=== PATIENT | male | born 1975 | race Caucasian/White ===

== ENCOUNTER 2016-05-18 07:10 | Inpatient (IN) | payer OTHER ==
[2016-05-18] MEDS ORDERED: METOCLOPRAMIDE HCL INJECTION 10 MG/2 ML VIAL IVPB ONE (07:29)
[2016-05-18 07:31] VITALS: BMI 20.7
[2016-05-18] MEDS ORDERED: LABETALOL HCL 5 MG/1 ML (100MG/20 ML VIAL) IVPUSH ONE ×2 (07:38→17:44)
[2016-05-18] MEDS ORDERED: METOCLOPRAMIDE HCL INJECTION 10 MG/2 ML VIAL ONE (07:43)
[2016-05-18 08:09] LABS: BASOPHIL 0.7 % (0-2.0); EOSINOPHIL 2.7 % (0-4.5); MCH 30.4 pg (25.7-33.7); MCHC 33.7 g/dl (32.0-35.9); MEAN CELL VOLUME 90.2 fl (80-96); MEAN PLT VOLUME 7.8 fl (7.5-11.1); NEUTROPHILS 71.3 % (42.8-82.8); PLATELET COUNT 75 K/MM3 (134-434); RDW 15.8 % (11.9-15.9); WHITE BLOOD COUNT 4.1 K/mm3 (4.0-10.0)
--- NOTE | 2016-05-18 08:12 | PDOC ---
History of Present Illness - General History Source: Patient Exam Limitations: No Limitations - History of Present Illness Initial Comments: 05/18/16 09:04 The patient is a 41 year old male with significant past medical history of diabetes and ESRD (on dialysis MWF) who presents to the emergency department with a headache for 1 day. The patient states his headache started yesterday afternoon and has been getting worse. He describes the headache as a constant, throbbing pressure localized to the front of his head. His pain does not radiate. He denies photophobia and other aggravating factors. He has associated bilateral blurry vision. He also reports associated nausea but denies any vomiting. He denies dizziness or lightheadedness. The patient is also complaining of right lower extremity weakness since yesterday. He has never experienced this pain before. The patietn was at dialysis today but did not receive his treatment because he came to the ED for evaluation of his headache. He denies any chest pain or SOB. He denies recent illness, fevers, and chills. The patient has been treated for a similar headache in 2013. <Sarah Massey - Last Filed: 05/18/16 10:32> <Boris Baxter - Last Filed: 05/18/16 13:29> - General Chief Complaint: Dialysis Shunt Problem Stated Complaint: WEAKNESS Time Seen by Provider: 05/18/16 07:29 Past History <Sarah Massey - Last Filed: 05/18/16 10:32> - Past Medical History Diabetes: Yes Dialysis: Yes (MW) HTN: Yes Suicide Attempt (Hx): No - Psycho/Social/Smoking Cessation Hx Anxiety: No Suicidal Ideation: No Smoking Status: No Smoking History: Never smoked Have you smoked in the past 12 months: No Number of Cigarettes Smoked Daily: 0 Information on smoking cessation initiated: No Hx Alcohol Use: No Drug/Substance Use Hx: No Substance Use Type: None Hx Substance Use Treatment: No <Boris Baxter - Last Filed: 05/18/16 13:29> - Past Medical History Allergies/Adverse Reactions: Allergies Allergy/AdvReac Type Severity Reaction Status Date / Time No Known Allergies Allergy Verified 05/18/16 07:30 Home Medications: Ambulatory Orders Insulin Glargine,Hum.rec.anlog [Lantus (10mL VIAL) -] 5 units SQ AM 01/25/13 Sevelamer HCl [Renagel] 2,400 mg PO TID 05/17/13 Folic Acid 1 mg PO DAILY 05/18/16 Insulin (LOG) Aspart [NovoLOG -] 10 units SQ HS 05/18/16 Labetalol HCl 100 mg PO BID 05/18/16 Nifedipine ER [Procardia Xl -] 30 mg PO DAILY 05/18/16 Sertraline HCl [Zoloft] 25 mg PO DAILY 05/18/16 Review of Systems - Review of Systems Able to Perform ROS?: Yes Comments:: 05/18/16 09:04 CONSTITUTIONAL: No fever, no chills, no fatigue EYES: +Blurry vision. No visual changes ENT: No ear pain, no sore throat CARDIOVASCULAR: No chest pain, no palpitations RESPIRATORY: No cough, no SOB GI: +Nausea. No abdominal pain, no vomiting, no constipation, no diarrhea GENITOURINARY: No dysuria, no frequency, no hematuria MUSCULOSKELETAL: No back pain, no joint pain, no myalgias SKIN: No rash NEURO: +Headache <Sarah Massey - Last Filed: 05/18/16 10:32> *Physical Exam - Vital Signs Last Vital Signs Temp Pulse Resp BP Pulse Ox 98 F 84 20 156/103 99 05/18/16 07:28 05/18/16 07:28 05/18/16 07:28 05/18/16 07:28 05/18/16 07:28 - Physical Exam Comments: 05/18/16 09:05 CONSTITUTIONAL: Well-appearing; well-nourished; in no apparent distress HEAD: Normocephalic; atraumatic EYES: PERRL; EOM intact. No photophobia, +left pupil is irregular. ENMT: External appears normal; normal oropharynx NECK: Supple; non-tender; no cervical lymphadenopathy. No evidence of meningismus. CARD: Normal S1, S2; no murmurs, rubs, or gallops RESP: Normal chest excursion with respiration; breath sounds clear and equal bilaterally; no wheezes, rhonchi, or rales ABD: Soft, non-distended; non-tender; no palpable organomegaly, no palpable hernias EXT: +LUQ with AV fistula noted with palpable thrill distally. Normal ROM in all four extremities; non-tender to palpation; distal pulses intact SKIN: Warm, dry, no rash NEURO: No focal neurological deficiencies. Cranial nerves 2-12 intact. Motor strength is 5/5 in both upper and lower extremities bilaterally. Gait is stable. <BrysonSarah - Last Filed: 05/18/16 10:32> - Vital Signs Last Vital Signs Temp Pulse Resp BP Pulse Ox 98 F 84 20 156/103 99 05/18/16 07:28 05/18/16 07:28 05/18/16 07:28 05/18/16 07:28 05/18/16 07:28 <Boris Baxter - Last Filed: 05/18/16 13:29> Heart Score/ECG Review - ECG Intrepretation Comment:: 05/18/16 08:51 Vent rate: 75 bpm ME interval: 142 ms QRS duration: 90 ms Normal sinus rhythm Possible left atrial enlargement Left ventricular hypertrophy <Sarah Massey - Last Filed: 05/18/16 10:32> ED Treatment Course - LABORATORY CBC & Chemistry Diagram: 05/18/16 07:40 05/18/16 07:40 - ADDITIONAL ORDERS Additional order review: Laboratory Results 05/18/16 07:40 INR 0.99 05/18/16 07:40 RBC 3.61 L MCV 90.2 MCHC 33.7 RDW 15.8 MPV 7.8 D Neutrophils % 71.3 Lymphocytes % 14.5 D Monocytes % 10.8 H Eosinophils % 2.7 Basophils % 0.7 - Medications Given in the ED: ED Medications Discontinued Medications Generic Name Dose Route Start Last Admin Trade Name Lamonteq PRN Reason Stop Dose Admin Diphenhydramine HCl 25 mg 05/18/16 07:30 05/18/16 07:50 Benadryl Injection - IVPUSH 05/18/16 07:31 25 mg ONCE ONE Administration Labetalol HCl 20 mg 05/18/16 07:38 05/18/16 07:50 Normodyne Injection - IVPUSH 05/18/16 07:39 20 mg ONCE ONE Administration Metoclopramide HCl 10 mg 05/18/16 07:29 05/18/16 07:50 Reglan Injection - IVPB 05/18/16 07:30 10 mg ONCE ONE Administration <Sarah Massey - Last Filed: 05/18/16 10:32> - LABORATORY CBC & Chemistry Diagram: 05/18/16 07:40 05/18/16 07:40 - RADIOLOGY Radiology Studies Ordered: Category Date Time Status HEAD CT WITHOUT CONTRAST [CT] Stat CT Scan 05/18/16 07:29 Taken - Medications Given in the ED: ED Medications Discontinued Medications Generic Name Dose Route Start Last Admin Trade Name Bjorn PRN Reason Stop Dose Admin Diphenhydramine HCl 25 mg 05/18/16 07:30 05/18/16 07:50 Benadryl Injection - IVPUSH 05/18/16 07:31 25 mg ONCE ONE Administration Labetalol HCl 20 mg 05/18/16 07:38 05/18/16 07:50 Normodyne Injection - IVPUSH 05/18/16 07:39 20 mg ONCE ONE Administration Metoclopramide HCl 10 mg 05/18/16 07:29 05/18/16 07:50 Reglan Injection - IVPB 05/18/16 07:30 10 mg ONCE ONE Administration <Boris Baxter - Last Filed: 05/18/16 13:29> Medical Decision Making - Medical Decision Making 05/18/16 10:[address] Pittman who is covering for Dr. Padgett. He will see the patient today. <Sarah Massey - Last Filed: 05/18/16 10:32> - Medical Decision Making 05/18/16 13:26 Patient is a well-appearing 41-year-old male with history of diabetes (end- stage renal disease on hemodialysis Monday/Monday/Monday), presents with atraumatic frontal headache for 24 hours with nausea and blurry vision and inability to obtain regular scheduled hemodialysis session due to the lack of properly functioning AV fistula. In the ER, patient is awake and alert, without evidence of meningismus; patient had been treated for similar symptoms in 2013. Neurological examination reveals no obvious deficits. Visual nevarez are intact bilaterally. I do not suspect a subarachnoid hemorrhage. CT of head revealed no evidence of intracerebral hemorrhage. Doppler ultrasound of the left upper extremity AV fistula revealed a thrombus with a 50% high-grade stenosis which will require declotting. Patient will be evaluated by Dr. Kd Smart vascular surgery. Will keep nothing by mouth. We'll hemodialyzed after declotting procedure. <Boris Baxter - Last Filed: 05/18/16 13:29> *DC/Admit/Observation/Transfer - Attestations Scribe Attestion: 05/18/16 08:48 Documentation prepared by Sarah Massey, acting as diploma medical assistant for Boris Baxter MD. <Sarah Massey - Last Filed: 05/18/16 10:32> - Discharge Dispostion Admit: Yes - Attestations Physician Attestion: 05/18/16 13:26 The documentation was prepared by the scribe under my direct supervision. I have reviewed the documentation which correctly represents the findings, medical decision-making and critical action taken by me. <Boris Baxter - Last Filed: 05/18/16 13:29> Diagnosis at time of Disposition: Headache AV fistula thrombosis Qualifiers: Encounter type: initial encounter Qualified Code(s): T82.868A - Thrombosis of vascular prosthetic devices, implants and grafts, initial encounter
[2016-05-18 08:22] LABS: INR 0.99 (0.82-1.09); PROTHROMBIN TIME (PATIENT) 10.9 SEC (9.98-11.88)
[2016-05-18 08:32] LABS: ALBUMIN 4.1 g/dl (3.4-5.0); BILIRUBIN,TOTAL 0.5 mg/dL (0.2-1.0); CALCIUM 8.8 mg/dL (8.5-10.1)
[2016-05-18] MEDS ORDERED: traMADol HCL 50 MG TABLET PO ONE (08:48)
[2016-05-18] MEDS ORDERED: traMADol HCL 50 MG TABLET ONE (08:49)
[2016-05-18 08:59] LABS: CREATININE 17.2 mg/dL (0.7-1.3)
--- NOTE | 2016-05-18 11:39 | CONSULT ---
Consult - text type - Consultation Consultation Note: Renal Consult for ESRD/Clotted AVF This is a 41 year old Gentleman with PMhx of ESRD with Hx of Renal transplant now on HD, Hypertension, IDDM who was sent to the ED from his outpatient HD unit for clotted AVF. Pt with complaints of headache since yesterday that is diffuse. No blurry vision, chest pain, sob. Last dialysis was Monday. Pt was seen by [facility] for his AVF last week and is s/p angioplasty however according to the dialysis unit has been having trouble with his access since then. They attempted to canulate him today but they were not able to pull blood from the AVF to start dialysis. Pt denies any fever, chills, N/V/D. PMhx: as above Allergies: NKDA Family Hx: NC Social Hx: No T/A/D ROS: as per HPI, all other pertinent ros negative Home Meds: Home Medications Medication Instructions Recorded Insulin Glargine,Hum.rec.anlog 5 units SQ AM 01/25/13 [Lantus (10mL VIAL) -] Sevelamer HCl [Renagel] 2,400 mg PO TID 05/17/13 Folic Acid 1 mg PO DAILY 05/18/16 Insulin (LOG) Aspart [NovoLOG -] 10 units SQ HS 05/18/16 Labetalol HCl 100 mg PO BID 05/18/16 Nifedipine ER [Procardia Xl -] 30 mg PO DAILY 05/18/16 Sertraline HCl [Zoloft] 25 mg PO DAILY 05/18/16 Vital Signs Temperature 98 F 05/18/16 07:28 Pulse Rate 84 05/18/16 07:28 Respiratory Rate 20 05/18/16 07:28 Blood Pressure 156/103 05/18/16 07:28 O2 Sat by Pulse Oximetry (%) 99 05/18/16 07:28 Intake & Output 05/15/16 05/16/16 05/17/16 05/18/16 23:59 23:59 23:59 23:59 Weight 145 lb Gen: NAD, awake and alert HEENT: NC/AT, MMM, No JVD CVS: RRR, No M/R Lungs: CTA, no rales or wheeze Abd: soft NT/ND Ext: No edema, clubbing or cyanosis Access: Left ARM AVF pulseatile, + buit in the distal portion of AVF Neuro: + RODRIGUES, no focal defects CBC, BMP 05/18/16 07:40 05/18/16 07:40 A/P 41 year old Gentleman with PMhx of ESRD with Hx of Renal transplant now on HD, Hypertension, IDDM who was sent to the ED from his outpatient HD unit for clotted AVF. Pt with complaints of headache since yesterday that is diffuse #Malfunctioning AVF s/p Doppler of AVF -> read pending Vascular Sx eval - Dr. Smart is aware may need declott this admission #ESRD on HD Due for dialysis today Will access need for inpatient dialysis depending on if there is a significant stenosis and if a intervention can be done early enough #Mild Hyperkalemia Montor for now if pt can get dialysis today that will be best intervention if dialysis not going to happen can use kayexalate #Headache S/p Tramadol in the ED #Hypertension s/p IV labetalol in the ED resume his home Procardia XL and PO labealol Thank you will follow Fransisco Pittman DO
[2016-05-18] MEDS ORDERED: ACETAMINOPHEN 500 MG TABLET (FP) PO ONE (12:30)
[2016-05-18] MEDS ORDERED: ACETAMINOPHEN 325 MG TABLET (FP) ONE (12:44)
[2016-05-18] MEDS: SODIUM CHLORIDE 1,000 ML IV SCH (13:48)
--- NOTE | 2016-05-18 16:05 | EKG ---
Test Reason : Blood Pressure : / mmHG Vent. Rate : 075 BPM Atrial Rate : 075 BPM P-R Int : 142 ms QRS Dur : 090 ms QT Int : 410 ms P-R-T Axes : 059 074 025 degrees QTc Int : 457 ms NORMAL SINUS RHYTHM POSSIBLE LEFT ATRIAL ENLARGEMENT LEFT VENTRICULAR HYPERTROPHY ABNORMAL ECG WHEN COMPARED WITH ECG OF 20-MAY-2013 12:09, NONSPECIFIC T WAVE ABNORMALITY NO LONGER EVIDENT IN LATERAL LEADS Confirmed by EVETTE ZAPIEN, CRISSY ([id number]) on 05/18/2016 4:04:46 PM Referred By: Confirmed By:CRISSY ALAS MD
--- NOTE | 2016-05-18 17:46 | PN ---
Progress Note (short form) - Note Progress Note: Vascular Surgery Pt seen and examined. Left avf pulsatile. Will need venogram, possible suction thrombectomy in am. NPO past midnite Kd alfred DO
[2016-05-18] MEDS ORDERED: ONDANSETRON 4 MG/2 ML VIAL IVPB PRN (19:02)
[2016-05-18] MEDS ORDERED: ONDANSETRON 4 MG/2 ML VIAL IVPB ONE (19:15)
[2016-05-18] MEDS ORDERED: DEXTROSE 4 GM PO SCH (21:30)
[2016-05-18] MEDS ORDERED: INSULIN SLIDING SCALE (NOVOLOG) 1 VIAL SQ SCH (22:00)
[2016-05-18] MEDS: hydrALAZINE HCL 25 MG TABLET (FP) PO SCH (22:43)
[2016-05-18] MEDS: LABETALOL HCL 100 MG TABLET (FP) PO SCH (22:43)
[2016-05-18] MEDS: INSULIN DETEMIR 100 UNITS/ML MDV SQ SCH (22:45)
[2016-05-19] MEDS: INSULIN (NOVOLOG) ASPART 100 UNITS/ML 10ML VIAL SQ SCH ×2 (06:19→11:26)
[2016-05-19 08:18] LABS: BASOPHIL 1.3 % (0-2.0); EOSINOPHIL 3.2 % (0-4.5); MCH 30.2 pg (25.7-33.7); MCHC 33.6 g/dl (32.0-35.9); MEAN CELL VOLUME 89.8 fl (80-96); MEAN PLT VOLUME 8.2 fl (7.5-11.1); PLATELET COUNT 75 K/MM3 (134-434); WHITE BLOOD COUNT 3.2 K/mm3 (4.0-10.0)
[2016-05-19] MEDS: SEVELAMER CARBONATE 800 MG TAB (FP) PO SCH ×2 (08:28→11:59)
[2016-05-19 08:47] LABS: ALBUMIN 3.8 g/dl (3.4-5.0); CALCIUM 8.8 mg/dL (8.5-10.1); TOT PROT 6.2 g/dl (6.4-8.2)
[2016-05-19 08:53] LABS: BILIRUBIN,TOTAL 0.6 mg/dL (0.2-1.0)
[2016-05-19 08:55] LABS: CREATININE 20.4 mg/dL (0.7-1.3)
[2016-05-19] MEDS ORDERED: PT OWN MED DRAWER 7, Y5N ONE (09:16)
[2016-05-19] MEDS: hydrALAZINE HCL 25 MG TABLET (FP) PO SCH ×2 (09:19→21:04)
[2016-05-19] MEDS: FOLIC ACID 1 MG TABLET (FP) PO SCH (09:19)
[2016-05-19] MEDS: LABETALOL HCL 100 MG TABLET (FP) PO SCH ×2 (09:19→21:05)
[2016-05-19] MEDS: SERTRALINE HCL 25 MG TABLET (FP) PO SCH (09:19)
[2016-05-19] MEDS ORDERED: NIFEdipine E.R. 30 MG TABLET (FP) PO SCH (10:00)
[2016-05-19] MEDS: SODIUM CHLORIDE 1,000 ML IV SCH (10:50)
--- NOTE | 2016-05-19 12:03 | PN ---
Progress Note (short form) - Note Progress Note: Renal Follow up for ESRD on HD/Clotted AVF Pt seen and examined at the bedside no acute complaints RODRIGUES is now resolved no chest pain, fever, chills for OR today for thrombectomy planed for dialysis after Vital Signs Temperature 98 F 05/19/16 08:00 Pulse Rate 75 05/19/16 08:00 Respiratory Rate 18 05/19/16 08:00 Blood Pressure 161/105 05/19/16 08:00 O2 Sat by Pulse Oximetry (%) 99 05/18/16 22:00 Intake & Output 05/16/16 05/17/16 05/18/16 05/19/16 23:59 23:59 23:59 23:59 Intake Total 0 600 Output Total 100 Balance -100 600 Weight 145 lb 0.004 oz Gen: NAD CVS: RRR, No M/R Lungs: CTA, no rales or wheeze Abd: soft NT/ND Ext: No edema, clubbing or cyanosis Access: Left ARM AVF pulseatile, + buit in the distal portion of AVF CBC, BMP 05/19/16 08:12 05/19/16 08:12 Laboratory Tests 05/19/16 08:12 Calcium 8.8 Albumin 3.8 Current Medications Folic Acid (Folic Acid -) 1 mg PO DAILY [facility] Last Admin: 05/19/16 09:19 Dose: Not Given Hydralazine HCl (Apresoline -) 25 mg PO BID [facility] Last Admin: 05/19/16 09:19 Dose: 25 mg Sodium Chloride (Normal Saline -) 1,000 mls @ 50 mls/hr IV ASDIR [facility] Stop: 05/19/16 13:29 Last Admin: 05/19/16 10:50 Dose: 50 mls/hr Insulin Aspart (Novolog Vial) 3 units SQ TIDAC [facility] Last Admin: 05/19/16 11:26 Dose: Not Given Insulin Detemir (Levemir Vial) 10 units SQ HS [facility] Last Admin: 05/18/16 22:45 Dose: 10 units Labetalol HCl (Normodyne -) 100 mg PO BID [facility] Last Admin: 05/19/16 09:19 Dose: 100 mg Nifedipine (Procardia Xl -) 30 mg PO DAILY [facility] Last Admin: 05/19/16 09:19 Dose: 30 mg Ondansetron HCl (Zofran Injection) 4 mg IVPB Q6H PRN PRN Reason: NAUSEA AND/OR VOMITING Sertraline HCl (Zoloft -) 25 mg PO DAILY [facility] Last Admin: 05/19/16 09:19 Dose: Not Given Sevelamer Carbonate (Renvela -) 2,400 mg PO TIDCM [facility] Last Admin: 05/19/16 11:59 Dose: Not Given A/P 41 year old Gentleman with PMhx of ESRD with Hx of Renal transplant now on HD, Hypertension, IDDM who was sent to the ED from his outpatient HD unit for clotted AVF. Pt with complaints of headache since yesterday that is diffuse #Malfunctioning AVF s/p Doppler of AVF -> showed significant stenosis for OR today for fistulagram and thrombectomy #ESRD on HD For dialysis following HD no heparin given low plts #Mild Hyperkalemia To get dialysis today #Headache no resolved #Hypertension Continue Procardia XL and PO labealol UF with HD Fransisco Pittman DO
[2016-05-19] MEDS ORDERED: DEXTROSE 50%-WATER 50 ML VIAL IVPB ONE (12:30)
[2016-05-19] MEDS ORDERED: DEXTROSE 50%-WATER 50 ML DISP.SYRIN ONE (12:33)
[2016-05-19] MEDS ORDERED: LIDOCAINE HCL 1%, 10 MG/ML (20ML VIAL) ONE (12:57)
[2016-05-19] MEDS ORDERED: HEPARIN NA (PORCINE) 5,000 UNITS/ML 1ML VIAL ONE (12:57)
[2016-05-19] MEDS ORDERED: LIDOCAINE 1% P/F 10 MG/ML VIAL INF ONE (13:57)
--- NOTE | 2016-05-19 14:17 | OP ---
Operative Note - Note: Operative Date: 05/19/16 Pre-Operative Diagnosis: ESRD Operation: Insertion of shiley Post-Operative Diagnosis: Same as Pre-op Surgeon: Kd Smart Anesthesia: Fractional Estimated Blood Loss (mls): 2 Operative Report Dictated: Yes
--- NOTE | 2016-05-19 14:21 | PN ---
Progress Note (short form) - Note Progress Note: VAscular Surgery Shiley cath placed left femoral vein. Guide wire removed. All ports flushed. May use cath for HD For delcot of left avf milvia morning. BP in OR today 180/105. Could not give anesthesia with the blood pressure being high. Kd Smart DO
--- NOTE | 2016-05-19 14:47 | EKG ---
Test Reason : Blood Pressure : / mmHG Vent. Rate : 086 BPM Atrial Rate : 086 BPM P-R Int : 150 ms QRS Dur : 088 ms QT Int : 380 ms P-R-T Axes : 064 077 036 degrees QTc Int : 454 ms NORMAL SINUS RHYTHM POSSIBLE LEFT ATRIAL ENLARGEMENT LEFT VENTRICULAR HYPERTROPHY ABNORMAL ECG WHEN COMPARED WITH ECG OF 18-MAY-2016 08:50, NO SIGNIFICANT CHANGE WAS FOUND Confirmed by STAR JORDAN MD ([id number]) on 05/19/2016 2:47:13 PM Referred By: Confirmed By:STAR JORDAN MD
--- NOTE | 2016-05-19 16:19 | HP ---
Admitting History and Physical - Past Medical History Cardiovascular: Yes: HTN Renal/: Yes: Renal Failure, Hemodialysis - Smoking History Smoking history: Never smoked Have you smoked in the past 12 months: No Aproximately how many cigarettes per day: 0 - Alcohol/Substance Use Hx Alcohol Use: No Home Medications - Allergies Allergies/Adverse Reactions: Allergies Allergy/AdvReac Type Severity Reaction Status Date / Time No Known Allergies Allergy Verified 05/18/16 07:30 - Home Medications Home Medications: Ambulatory Orders Insulin Glargine,Hum.rec.anlog [Lantus (10mL VIAL) -] 3 units SQ TIDCM 01/25/13 Sevelamer HCl [Renagel] 2,400 mg PO TID 05/17/13 Dextrose Tablet [Glucose Tablet -] 4 gm PO ASDIR 05/18/16 Folic Acid 1 mg PO DAILY 05/18/16 Insulin (LOG) Aspart [NovoLOG -] 10 units SQ HS 05/18/16 Labetalol HCl 100 mg PO BID 05/18/16 Nifedipine ER [Procardia Xl -] 30 mg PO DAILY 05/18/16 Sertraline HCl [Zoloft] 25 mg PO DAILY 05/18/16 Physical Examination Vital Signs: Vital Signs Temperature 97.9 F 05/19/16 14:00 Pulse Rate 87 05/19/16 15:50 Respiratory Rate 18 05/19/16 15:50 Blood Pressure 172/108 05/19/16 15:50 O2 Sat by Pulse Oximetry (%) 98 05/19/16 09:00 Labs: CBC, BMP 05/19/16 08:12 05/19/16 08:12
[2016-05-19 19:30] LABS: CALCIUM 8.5 mg/dL (8.5-10.1)
[2016-05-19] MEDS: ACETAMINOPHEN 325 MG TABLET (FP) PO PRN (21:04)
[2016-05-19] MEDS: INSULIN DETEMIR 100 UNITS/ML MDV SQ SCH (21:05)
[2016-05-20] MEDS: ACETAMINOPHEN 325 MG TABLET (FP) PO PRN (02:51)
[2016-05-20] MEDS: INSULIN (NOVOLOG) ASPART 100 UNITS/ML 10ML VIAL SQ SCH ×2 (06:06→11:39)
[2016-05-20 07:31] LABS: BASOPHIL 0.9 % (0-2.0); EOSINOPHIL 2.5 % (0-4.5); MCH 30.2 pg (25.7-33.7); MCHC 33.8 g/dl (32.0-35.9); MEAN CELL VOLUME 89.3 fl (80-96); NEUTROPHILS 66.4 % (42.8-82.8); PLATELET COUNT 78 K/MM3 (134-434); RDW 15.3 % (11.9-15.9); WHITE BLOOD COUNT 3.1 K/mm3 (4.0-10.0)
[2016-05-20 07:47] LABS: ALBUMIN 3.8 g/dl (3.4-5.0); CALCIUM 8.1 mg/dL (8.5-10.1)
[2016-05-20 07:55] LABS: BILIRUBIN,TOTAL 0.6 mg/dL (0.2-1.0); TOT PROT 6.8 g/dl (6.4-8.2)
[2016-05-20] MEDS: SEVELAMER CARBONATE 800 MG TAB (FP) PO SCH ×2 (08:31→12:00)
[2016-05-20 08:46] LABS: CREATININE 11.4 mg/dL (0.7-1.3)
[2016-05-20] MEDS ORDERED: NIFEdipine E.R 60 MG TABLET (UD) PO SCH (09:41)
[2016-05-20] MEDS ORDERED: LABETALOL HCL 200 MG TABLET (FP) PO SCH (09:41)
[2016-05-20] MEDS ORDERED: PT OWN MED DRAWER 7, Y5N ONE (09:46)
[2016-05-20] MEDS: hydrALAZINE HCL 25 MG TABLET (FP) PO SCH ×2 (09:48→21:50)
[2016-05-20] MEDS: FOLIC ACID 1 MG TABLET (FP) PO SCH (09:48)
[2016-05-20] MEDS: SERTRALINE HCL 25 MG TABLET (FP) PO SCH (09:48)
--- NOTE | 2016-05-20 12:56 | CON.CARD ---
Consult Consult Specialty:: Cardiology Referred by:: Dr. Yap Reason for Consultation:: uncontrolled HTN - History of Present Illness Chief Complaint: headache, clotted AV graft History of Present Illness: 41 year old man h/o DM, ESRD on HD admitted with headache and clotted AV graft, noted to have severe uncontrolled HTN. Seen and examined today in nad. states he is feeling better. still mild headache. denies chest pain, sob, palpitations , no pnd, orthopnea, or le edema. - History Source History Provided By: Patient, Medical Record Limitations to Obtaining History: Language Barrier - Past Medical History Cardio/Vascular: Yes: HTN Renal/: Yes: Renal Failure, Hemodialysis - Alcohol/Substance Use Hx Alcohol Use: No - Smoking History Smoking history: Never smoked Have you smoked in the past 12 months: No Aproximately how many cigarettes per day: 0 Home Medications - Allergies Allergies/Adverse Reactions: Allergies Allergy/AdvReac Type Severity Reaction Status Date / Time No Known Allergies Allergy Verified 05/18/16 07:30 - Home Medications Home Medications: Ambulatory Orders Insulin Glargine,Hum.rec.anlog [Lantus (10mL VIAL) -] 3 units SQ TIDCM 01/25/13 Sevelamer HCl [Renagel] 2,400 mg PO TID 05/17/13 Dextrose Tablet [Glucose Tablet -] 4 gm PO ASDIR 05/18/16 Folic Acid 1 mg PO DAILY 05/18/16 Insulin (LOG) Aspart [NovoLOG -] 10 units SQ HS 05/18/16 Labetalol HCl 100 mg PO BID 05/18/16 Nifedipine ER [Procardia Xl -] 30 mg PO DAILY 05/18/16 Sertraline HCl [Zoloft] 25 mg PO DAILY 05/18/16 Family Disease History - Family Disease History Family History: Denies Review of Systems - Review of Systems Constitutional: denies: No Symptoms, Chills, Diaphoresis, Fever, Lethargy, Loss of Appetite, Malaise, Night Sweats, Unintentional Wgt. Loss, Weakness, Other Eyes: denies: No Symptoms, Blind Spots, Blurred Vision, Double Vision, Eye Pain , Floaters, Photophobia, Recent Change in Vision, Other HENT: denies: No Symptoms, Difficult Swallowing, Ear Discharge, Ear Pain, Epistaxis, Gingival Bleeding, Hearing Loss, Mouth Swelling, Nasal Congestion, Ocular Prosthesis, Throat Pain, Toothache, Ringing in Ears, Other Neck: denies: No Symptoms, Decreased ROM, Lumps, Pain on Movement, Stiffness, Swollen Glands, Tenderness, Other Cardiovascular: denies: No Symptoms, Chest Pain, Edema, Palpitations, Shortness of Breath, Other Respiratory: denies: No Symptoms, Cough, Exercise Intolerance, Hemoptysis, Orthopnea, PND, Snoring, SOB, SOB on Exertion, Wheezing, Other Gastrointestinal: denies: No Symptoms, Abdominal Pain, Bloating, Constipation, Diarrhea, Dysphagia, Indigestion, Melena, Nausea, Rectal Bleeding, Vomiting, Vomiting Blood, Other Genitourinary: denies: No Symptoms, Burning, Discharge, Dysuria, Flank Pain, Frequency, Hematuria, Incontinence, Lesions, Menses, Pain, Testicular Mass, Testicular Pain, Testicular Swelling, Urgency, Vaginal Bleeding, Other Breasts: denies: No Symptoms Reported, See HPI, Breast Implants, Discharge from Nipple, Lumps, Pain, Skin Changes, Other Musculoskeletal: denies: No Symptoms, Back Pain, Crepitus, Decreased ROM, Extremity Pain, Joint Pain, Joint Swelling, Muscle Pain, Muscle Cramps, Muscle Weakness, Other Integumentary: denies: No Symptoms, Blister, Bruising, Change in Color, Eczema, Erythema, Incision, Lesions, Lump, Pallor, Pruritis, Rash, Wound, Other Neurological: reports: Headache. denies: No Symptoms, Change in LOC, Change in Speech, Confusion, Dizziness, Incoordination, Numbness, Parasthesia, Pre- Existing Deficit, Seizure, Syncope, Tremors, Unsteady Gait, Weakness, Other Endocrine: denies: No Symptoms, Excessive Sweating, Flushing, Increased Hunger, Increased Thirst, Intolerance to Cold, Intolerance to Heat, Unexplained Weight Gain, Unexplained Weight Loss, Other Hematology/Lymphatic: denies: No Symptoms, Easily Bruised, Excessive Bleeding, Swollen Glands, Other Psychiatric: denies: No Symptoms, Altered Sleep Pattern, Anxiety, Depression, Hallucinations, Panic, Paranoia, Suicidal, Other - Risk Factors Known Risk Factors: Yes: Diabetes Mellitus Vital Signs: Vital Signs Temperature 97.8 F 05/20/16 07:52 Pulse Rate 90 05/20/16 11:40 Respiratory Rate 18 05/20/16 11:40 Blood Pressure 152/96 05/20/16 11:40 O2 Sat by Pulse Oximetry (%) 98 05/19/16 21:00 Constitutional: Yes: Well Nourished, No Distress, Calm Eyes: Yes: WNL, Conjunctiva Clear, EOM Intact, PERRL HENT: Yes: WNL, Atraumatic, Normocephalic Neck: Yes: WNL, Supple, Trachea Midline Respiratory: Yes: WNL, Regular, CTA Bilaterally. No: Rales, Rhonchi, Wheezes Gastrointestinal: Yes: WNL, Normal Bowel Sounds, Soft. No: Distention, Tenderness Renal/: Yes: WNL Cardiovascular: Yes: WNL, Regular Rate and Rhythm. No: Bradycardia, Tachycardia , Pulse Irregular, Gallop, Rub, Varicosities JVD: No Carotid Bruit: No PMI: Non-Displaced Heart Sounds: Yes: S1, S2. No: Split S2, S3, S4, Clicks, Gallop, Rub, Bruit Murmur: No: Systolic Murmur, Diastolic Murmur Musculoskeletal: Yes: WNL Extremities: Yes: WNL Edema: No Peripheral Pulses WNL: Yes Peripheral Pulses: 2+ Left Doralis Pedis, 2+ Right Dorsalis Pedis Integumentary: Yes: WNL Neurological: Yes: WNL, Alert, Oriented, Cran Nerves II-XII Intact ...Motor Strength: WNL Psychiatric: Yes: WNL, Alert, Oriented - Other Data Labs, Other Data: CBC, BMP 05/20/16 06:30 05/20/16 06:30 INR, PTT INR 0.99 (0.82-1.09) 05/18/16 07:40 ekg reviewed Imaging - Results Chest X-ray: Report Reviewed, Image Reviewed EKG: Report Reviewed, Image Reviewed Other: Report Reviewed, Image Reviewed Assessment/Plan 41 year old man h/o DM, ESRD on HD admitted with headache and clotted AV graft, noted to have severe uncontrolled HTN. Severe uncontrolled HTN -uptitrate procardia to 60mg daily and further if needed for HTN control -uptitrate Labetalol to 200mg bid and further if needed -cont hydralazine 25mg po bid for now
--- NOTE | 2016-05-20 13:05 | PN ---
Progress Note (short form) - Note Progress Note: Renal Follow up for ESRD on HD/Clotted AVF Pt seen and examined at the bedside s/p Hd yesterday via Shiley catheter no acute complaints for AVF declott today Vital Signs Temperature 97.8 F 05/20/16 07:52 Pulse Rate 90 05/20/16 11:40 Respiratory Rate 18 05/20/16 11:40 Blood Pressure 152/96 05/20/16 11:40 O2 Sat by Pulse Oximetry (%) 97 05/20/16 09:00 Intake & Output 05/17/16 05/18/16 05/19/16 05/20/16 23:59 23:59 23:59 23:59 Intake Total 0 1050 Output Total 100 Balance -100 1050 Weight 145 lb 0.004 oz Gen: NAD CVS: RRR, No M/R Lungs: CTA, no rales or wheeze Abd: soft NT/ND Ext: No edema, clubbing or cyanosis Access: Left ARM AVF pulseatile, + buit in the distal portion of AVF CBC, BMP 05/20/16 06:30 05/20/16 06:30 Current Medications Acetaminophen (Tylenol -) 650 mg PO Q6H PRN PRN Reason: FEVER OR PAIN Last Admin: 05/20/16 02:51 Dose: 650 mg Folic Acid (Folic Acid -) 1 mg PO DAILY [facility] Last Admin: 05/20/16 09:48 Dose: Not Given Hydralazine HCl (Apresoline -) 25 mg PO BID [facility] Last Admin: 05/20/16 09:48 Dose: 25 mg Insulin Aspart (Novolog Vial) 3 units SQ TIDAC [facility] Last Admin: 05/20/16 11:39 Dose: Not Given Insulin Detemir (Levemir Vial) 10 units SQ HS [facility] Last Admin: 05/19/16 21:05 Dose: Not Given Labetalol HCl (Normodyne -) 200 mg PO BID [facility] Last Admin: 05/20/16 09:48 Dose: 200 mg Nifedipine (Procardia Xl -) 60 mg PO DAILY [facility] Last Admin: 05/20/16 10:56 Dose: 60 mg Ondansetron HCl (Zofran Injection) 4 mg IVPB Q6H PRN PRN Reason: NAUSEA AND/OR VOMITING Sertraline HCl (Zoloft -) 25 mg PO DAILY [facility] Last Admin: 05/20/16 09:48 Dose: Not Given Sevelamer Carbonate (Renvela -) 2,400 mg PO TIDCM [facility] Last Admin: 05/20/16 08:31 Dose: Not Given A/P 41 year old Gentleman with PMhx of ESRD with Hx of Renal transplant now on HD, Hypertension, IDDM who was sent to the ED from his outpatient HD unit for clotted AVF. Pt with complaints of headache since yesterday that is diffuse #Malfunctioning AVF s/p Doppler of AVF -> showed significant stenosis for AVF declott today #ESRD on HD s/p dialysis yesterday pt is off regular HD schedule Arrangement have been made for him to have dialysis tomorrow as his outpatient HD unit tomorrow at 3pm. Transportation to be arranged by HD unit. Pt is aware of this. He can be discharged home after OR. #Hypertension Continue Procardia XL and PO labealol UF with HD Fransisco Pittman DO
--- NOTE | 2016-05-20 14:12 | OP ---
DATE OF OPERATION: 05/19/2016 PROCEDURE: Insertion of dialysis catheter (Shiley). PREOPERATIVE DIAGNOSIS: End-stage renal disease. POSTOPERATIVE DIAGNOSIS: End-stage renal disease. SURGEON: Kd Mueller DO ANESTHESIA: Local BLOOD LOSS: 5 mL INDICATION: The patient is a 40-year-old male who comes in with a clotted left AV fistula. He has an elevated potassium of 5.7 with high blood pressure and cannot be dialyzed. Thus, he needs pre-dialysis catheter placement. The patient was consented for a Shiley catheter placement. Patient was consented for procedure. Understanding all risks, benefits, alternatives, he was then taken to the operating room. Once in the operating room, he was placed in the supine position. The area of the left groin was prepped and draped in a sterile surgical manner. We then injected % over the left common femoral vein. We then used our entry needle and punctured the left common femoral vein and then our guidewire was inserted. We then removed the guidewire. We then used an 11 blade and made a 1-cm puncture over the wire. We then used our dilator and we dilated up the tract for the catheter. We then placed the catheter over the wire and into the vein. The guidewire was then taken out. Both ports of the Shiley catheter with flushed and there was good drawback from each port. We then placed a Biopatch. We then used 3-0 nylon. The catheter was attached to the skin and a Tegaderm was placed. The patient tolerated the procedure with no complication. The patient was transferred back in stable condition and will go to dialysis. KD MUELLER DO [employer]/[id number]
[2016-05-20] MEDS ORDERED: LIDOCAINE HCL 1%, 10 MG/ML (20ML VIAL) ONE (14:59)
[2016-05-20] MEDS ORDERED: HEPARIN NA (PORCINE) 5,000 UNITS/ML 1ML VIAL ONE ×2 (14:59→16:16)
[2016-05-20] MEDS ORDERED: PROPOFOL 20 ML ONE (16:24)
[2016-05-20] MEDS ORDERED: MIDAZOLAM HCL 2 MG/2 ML SINGLE DOSE VIAL ONE ×2 (16:24)
[2016-05-20] MEDS ORDERED: ceFAZolin SODIUM 1 GM VIAL ONE (16:27)
[2016-05-20] MEDS ORDERED: ceFAZolin SODIUM 1 GM VIAL IVPB ONE (16:34)
[2016-05-20] MEDS ORDERED: PROMETHAZINE HCL 25 MG/1 ML VIAL IVPUSH PRN ×2 (17:01→17:43)
[2016-05-20] MEDS ORDERED: ONDANSETRON 4 MG/2 ML VIAL IVPUSH PRN ×2 (17:01→17:43)
[2016-05-20] MEDS ORDERED: oxyCODONE HCL 5 MG TABLET PO PRN ×2 (17:01→17:43)
[2016-05-20] MEDS: LABETALOL HCL 5 MG/1 ML (100MG/20 ML VIAL) IVPUSH ONE ×3 (17:15→17:50)
[2016-05-20] MEDS: ACETAMINOPHEN 1000 MG/100 ML VIAL (NON FORMULARY) IVPB ONE (17:20)
[2016-05-20] MEDS ORDERED: ACETAMINOPHEN INJECTION 100 ML IVPB ONE (17:21)
[2016-05-20] MEDS ORDERED: ACETAMINOPHEN 1000 MG/100 ML VIAL (NON FORMULARY) IVPB ONE (17:37)
[2016-05-20] MEDS ORDERED: LABETALOL HCL 5 MG/1 ML (100MG/20 ML VIAL) IVPUSH ONE (17:38)
--- NOTE | 2016-05-20 17:42 | OP ---
Operative Note - Note: Operative Date: 05/20/16 Pre-Operative Diagnosis: Clotted left avf Operation: Left avf venogram, suction thrombectomy, venoplasty. Findings: clot in pseudoaneurysm Post-Operative Diagnosis: Same as Pre-op Surgeon: Kd Smart Anesthesia: Fractional Estimated Blood Loss (mls): 20 Operative Report Dictated: Yes
[2016-05-20] MEDS ORDERED: ONDANSETRON 4 MG/2 ML VIAL IVPB PRN (17:43)
[2016-05-20] MEDS ORDERED: hydrALAZINE HCL 20 MG/ML VIAL IVPUSH ONE ×2 (18:15→18:45)
[2016-05-20] MEDS ORDERED: ONDANSETRON 4 MG/2 ML VIAL ONE (18:31)
--- NOTE | 2016-05-20 20:07 | PN ---
Progress Note, Physician - Current Medication List Current Medications: Active Medications Acetaminophen (Tylenol -) 650 mg PO Q6H PRN PRN Reason: FEVER OR PAIN Folic Acid (Folic Acid -) 1 mg PO DAILY [facility] Hydralazine HCl (Apresoline -) 25 mg PO BID [facility] Insulin Aspart (Novolog Vial) 3 units SQ TIDAC [facility] Insulin Detemir (Levemir Vial) 10 units SQ HS [facility] Labetalol HCl (Normodyne -) 200 mg PO BID [facility] Nifedipine (Procardia Xl -) 60 mg PO DAILY [facility] Ondansetron HCl (Zofran Injection) 4 mg IVPB Q6H PRN PRN Reason: NAUSEA AND/OR VOMITING Last Admin: 05/20/16 17:30 Dose: 4 mg Ondansetron HCl (Zofran Injection) 4 mg IVPUSH Q6H PRN PRN Reason: NAUSEA AND/OR VOMITING Stop: 05/20/16 23:02 Oxycodone HCl (Roxicodone -) 5 mg PO Q4H PRN PRN Reason: MILD PAIN Stop: 05/21/16 17:00 Promethazine HCl (Phenergan Injection -) 12.5 mg IVPUSH Q6H PRN PRN Reason: NAUSEA Stop: 05/20/16 23:02 Sertraline HCl (Zoloft -) 25 mg PO DAILY [facility] Sevelamer Carbonate (Renvela -) 2,400 mg PO TIDCM [facility] - Objective Vital Signs: Vital Signs Temperature 97 F L 05/20/16 16:57 Pulse Rate 81 05/20/16 19:00 Respiratory Rate 16 05/20/16 19:00 Blood Pressure 158/100 05/20/16 19:00 O2 Sat by Pulse Oximetry (%) 100 05/20/16 19:00 Labs: CBC, BMP 05/20/16 06:30 05/20/16 06:30 INR, PTT INR 0.99 (0.82-1.09) 05/18/16 07:40
[2016-05-20] MEDS: LABETALOL HCL 200 MG TABLET (FP) PO SCH (21:50)
[2016-05-20] MEDS ORDERED: ONDANSETRON 4 MG/2 ML VIAL IVPB ONE (22:00)
[2016-05-20] MEDS: INSULIN DETEMIR 100 UNITS/ML MDV SQ SCH (22:31)
[2016-05-21] MEDS ORDERED: INSULIN (NOVOLOG) ASPART 100 UNITS/ML 10ML VIAL ONE ×2 (06:01→06:53)
[2016-05-21 06:06] LABS: HEP B SURFACE AB Reactive (.)
[2016-05-21] MEDS: INSULIN (NOVOLOG) ASPART 100 UNITS/ML 10ML VIAL SQ SCH ×3 (06:55→16:48)
[2016-05-21] MEDS ORDERED: PT OWN MED DRAWER 7, Y5N ONE (08:53)
[2016-05-21] MEDS: SEVELAMER CARBONATE 800 MG TAB (FP) PO SCH ×3 (09:05→17:16)
[2016-05-21] MEDS: LABETALOL HCL 200 MG TABLET (FP) PO SCH ×2 (09:06→21:10)
[2016-05-21] MEDS: hydrALAZINE HCL 25 MG TABLET (FP) PO SCH ×2 (09:06→21:10)
[2016-05-21] MEDS: NIFEdipine E.R 60 MG TABLET (UD) PO SCH (09:07)
[2016-05-21] MEDS: SERTRALINE HCL 25 MG TABLET (FP) PO SCH (09:12)
[2016-05-21] MEDS: FOLIC ACID 1 MG TABLET (FP) PO SCH (09:12)
--- NOTE | 2016-05-21 09:23 | PN ---
Progress Note (short form) - Note Progress Note: ANESTHESIA POST-OP CHECK 41M s/p LUE venofrma, venoplasty, POD #1. No acute complaints, tolerating PO, denies N/V. Pain 0/10 and tolerable. Vital Signs Temperature 98.3 F 05/21/16 08:36 Pulse Rate 86 05/21/16 08:36 Respiratory Rate 20 05/21/16 08:36 Blood Pressure 172/104 05/21/16 08:36 O2 Sat by Pulse Oximetry (%) 100 05/20/16 21:00 Active Medications Acetaminophen (Tylenol -) 650 mg PO Q6H PRN PRN Reason: FEVER OR PAIN Folic Acid (Folic Acid -) 1 mg PO DAILY [facility] Last Admin: 05/21/16 09:12 Dose: 1 mg Hydralazine HCl (Apresoline -) 25 mg PO BID [facility] Last Admin: 05/21/16 09:06 Dose: 25 mg Insulin Aspart (Novolog Vial) 3 units SQ TIDAC [facility] Last Admin: 05/21/16 06:55 Dose: 3 units Insulin Detemir (Levemir Vial) 10 units SQ HS [facility] Last Admin: 05/20/16 22:31 Dose: Not Given Labetalol HCl (Normodyne -) 200 mg PO BID [facility] Last Admin: 05/21/16 09:06 Dose: 200 mg Nifedipine (Procardia Xl -) 60 mg PO DAILY [facility] Last Admin: 05/21/16 09:07 Dose: 60 mg Ondansetron HCl (Zofran Injection) 4 mg IVPB Q6H PRN PRN Reason: NAUSEA AND/OR VOMITING Last Admin: 05/20/16 17:30 Dose: 4 mg Oxycodone HCl (Roxicodone -) 5 mg PO Q4H PRN PRN Reason: MILD PAIN Stop: 05/21/16 17:00 Sertraline HCl (Zoloft -) 25 mg PO DAILY [facility] Last Admin: 05/21/16 09:12 Dose: 25 mg Sevelamer Carbonate (Renvela -) 2,400 mg PO TIDCM [facility] Last Admin: 05/21/16 09:05 Dose: 2,400 mg Gen: awake, alert No apparent anesthesia complications. Pain well controlled. Continue management as per primary team.
--- NOTE | 2016-05-21 11:07 | PN ---
Progress Note (short form) - Note Progress Note: Renal Follow up for ESRD on HD/Clotted AVF Pt seen and examined at the bedside s/p Declott yesterday no acute complaints for HD today D/c held yesterday because of elevated BP Vital Signs Temperature 97.8 F 05/20/16 07:52 Pulse Rate 90 05/20/16 11:40 Respiratory Rate 18 05/20/16 11:40 Blood Pressure 152/96 05/20/16 11:40 O2 Sat by Pulse Oximetry (%) 97 05/20/16 09:00 Intake & Output 05/17/16 05/18/16 05/19/16 05/20/16 23:59 23:59 23:59 23:59 Intake Total 0 1050 Output Total 100 Balance -100 1050 Weight 145 lb 0.004 oz Gen: NAD CVS: RRR, No M/R Lungs: CTA, no rales or wheeze Abd: soft NT/ND Ext: No edema, clubbing or cyanosis CBC, BMP 05/20/16 06:30 Current Medications Acetaminophen (Tylenol -) 650 mg PO Q6H PRN PRN Reason: FEVER OR PAIN Folic Acid (Folic Acid -) 1 mg PO DAILY [facility] Last Admin: 05/21/16 09:12 Dose: 1 mg Hydralazine HCl (Apresoline -) 25 mg PO BID [facility] Last Admin: 05/21/16 09:06 Dose: 25 mg Insulin Aspart (Novolog Vial) 3 units SQ TIDAC [facility] Last Admin: 05/21/16 06:55 Dose: 3 units Insulin Detemir (Levemir Vial) 10 units SQ HS [facility] Last Admin: 05/20/16 22:31 Dose: Not Given Labetalol HCl (Normodyne -) 200 mg PO BID [facility] Last Admin: 05/21/16 09:06 Dose: 200 mg Nifedipine (Procardia Xl -) 60 mg PO DAILY [facility] Last Admin: 05/21/16 09:07 Dose: 60 mg Nifedipine (Procardia Xl -) 30 mg PO ONCE ONE Stop: 05/21/16 11:06 Ondansetron HCl (Zofran Injection) 4 mg IVPB Q6H PRN PRN Reason: NAUSEA AND/OR VOMITING Last Admin: 05/20/16 17:30 Dose: 4 mg Oxycodone HCl (Roxicodone -) 5 mg PO Q4H PRN PRN Reason: MILD PAIN Stop: 05/21/16 17:00 Sertraline HCl (Zoloft -) 25 mg PO DAILY [facility] Last Admin: 05/21/16 09:12 Dose: 25 mg Sevelamer Carbonate (Renvela -) 2,400 mg PO TIDCM [facility] Last Admin: 05/21/16 09:05 Dose: 2,400 mg A/P 41 year old Gentleman with PMhx of ESRD with Hx of Renal transplant now on HD, Hypertension, IDDM who was sent to the ED from his outpatient HD unit for clotted AVF. Pt with complaints of headache since yesterday that is diffuse #Malfunctioning AVF s/p Declott by Dr. Smart to use AVF today #ESRD on HD HD today and then resume HD on MWF schedule as outpatient #Hypertension Continue Procardia XL and PO labealol UF with HD extra procardia 30mg this am as bp is elevated for discharge today Fransisco Pittman DO
[2016-05-21] MEDS ORDERED: NIFEdipine E.R. 30 MG TABLET (FP) PO ONE (11:45)
[2016-05-21 12:01] LABS: CREATININE 15.1 mg/dL (0.7-1.3)
--- NOTE | 2016-05-21 16:12 | PN ---
Progress Note, Physician Chief Complaint: Pt denies chest pain; feels weak. History of Present Illness: The patient is a 41 year old male (b. [place]) with significant past medical history of diabetes and ESRD (on dialysis MWF) who presents to the emergency department with a headache for 1 day. The patient states his headache started yesterday afternoon and has been getting worse. He describes the headache as a constant, throbbing pressure localized to the front of his head. His pain does not radiate. He denies photophobia and other aggravating factors. He has associated bilateral blurry vision. He also reports associated nausea but denies any vomiting. He denies dizziness or lightheadedness. The patient is also complaining of right lower extremity weakness since yesterday. He has never experienced this pain before. The pt was at dialysis today but did not receive his treatment because he came to the ED for evaluation of his headache. He denies any chest pain or SOB. He denies recent illness, fevers, and chills. The patient has been treated for a similar headache in 2013. - Current Medication List Current Medications: Active Medications Acetaminophen (Tylenol -) 650 mg PO Q6H PRN PRN Reason: FEVER OR PAIN Folic Acid (Folic Acid -) 1 mg PO DAILY [facility] Last Admin: 05/21/16 09:12 Dose: 1 mg Hydralazine HCl (Apresoline -) 25 mg PO BID [facility] Last Admin: 05/21/16 09:06 Dose: 25 mg Insulin Aspart (Novolog Vial) 3 units SQ TIDAC [facility] Last Admin: 05/21/16 11:00 Dose: Not Given Insulin Detemir (Levemir Vial) 10 units SQ HS [facility] Last Admin: 05/20/16 22:31 Dose: Not Given Labetalol HCl (Normodyne -) 200 mg PO BID [facility] Last Admin: 05/21/16 09:06 Dose: 200 mg Nifedipine (Procardia Xl -) 60 mg PO DAILY [facility] Last Admin: 05/21/16 09:07 Dose: 60 mg Ondansetron HCl (Zofran Injection) 4 mg IVPB Q6H PRN PRN Reason: NAUSEA AND/OR VOMITING Last Admin: 05/20/16 17:30 Dose: 4 mg Oxycodone HCl (Roxicodone -) 5 mg PO Q4H PRN PRN Reason: MILD PAIN Stop: 02/25/17 17:00 Sertraline HCl (Zoloft -) 25 mg PO DAILY [facility] Last Admin: 05/21/16 09:12 Dose: 25 mg Sevelamer Carbonate (Renvela -) 2,400 mg PO TIDCM [facility] Last Admin: 05/21/16 12:00 Dose: Not Given - Objective Vital Signs: Vital Signs Temperature 97.5 F L 05/21/16 15:54 Pulse Rate 87 05/21/16 15:54 Respiratory Rate 20 05/21/16 15:54 Blood Pressure 127/74 05/21/16 15:54 O2 Sat by Pulse Oximetry (%) 98 05/21/16 09:00 Constitutional: Yes: Anxious Eyes: Yes: WNL HENT: Yes: WNL Neck: Yes: WNL Cardiovascular: Yes: Regular Rate and Rhythm Respiratory: Yes: Regular Gastrointestinal: Yes: Soft ...Rectal Exam: Yes: Deferred Genitourinary: Yes: Anuria Breast(s): Yes: WNL Musculoskeletal: Yes: Muscle Weakness Extremities: Yes: WNL Edema: No Peripheral Pulses WNL: Yes Integumentary: Yes: WNL Neurological: Yes: Alert, Oriented, Weakness Psychiatric: Yes: Alert, Oriented, Other (anxiety) Labs: CBC, BMP 05/20/16 06:30 05/21/16 10:30 INR, PTT INR 0.99 (0.82-1.09) 05/18/16 07:40 - ....Imaging EKG: Image Reviewed (NSR; LVH) Problem List - Problems (1) Headache Code(s): R51 - HEADACHE (2) Renal dialysis Code(s): Z99.2 - DEPENDENCE ON RENAL DIALYSIS (3) HTN (hypertension) Code(s): I10 - ESSENTIAL (PRIMARY) HYPERTENSION (4) AV fistula thrombosis Code(s): T82.868A - THROMBOSIS DUE TO VASCULAR PROSTH DEV/GRFT, INIT Qualifiers: Encounter type: initial encounter Qualified Code(s): T82.868A - Thrombosis of vascular prosthetic devices, implants and grafts, initial encounter (5) Systolic CHF Assessment/Plan: On Labetolol, hydralazine (consider adding Nitrate), and nifedipine. Code(s): I50.20 - UNSPECIFIED SYSTOLIC (CONGESTIVE) HEART FAILURE
[2016-05-21] MEDS: ACETAMINOPHEN 325 MG TABLET (FP) PO PRN (21:09)
[2016-05-21] MEDS: INSULIN DETEMIR 100 UNITS/ML MDV SQ SCH (21:13)
--- NOTE | 2016-05-21 23:46 | PN ---
Progress Note, Physician - Current Medication List Current Medications: Active Medications Acetaminophen (Tylenol -) 650 mg PO Q6H PRN PRN Reason: FEVER OR PAIN Last Admin: 05/21/16 21:09 Dose: 650 mg Folic Acid (Folic Acid -) 1 mg PO DAILY [facility] Last Admin: 05/21/16 09:12 Dose: 1 mg Hydralazine HCl (Apresoline -) 25 mg PO BID [facility] Last Admin: 05/21/16 21:10 Dose: 25 mg Insulin Aspart (Novolog Vial) 3 units SQ TIDAC [facility] Last Admin: 05/21/16 16:48 Dose: 3 units Insulin Detemir (Levemir Vial) 10 units SQ HS [facility] Last Admin: 05/21/16 21:13 Dose: 10 units Isosorbide Mononitrate (Imdur -) 30 mg PO DAILY [facility] Labetalol HCl (Normodyne -) 200 mg PO BID [facility] Last Admin: 05/21/16 21:10 Dose: 200 mg Nifedipine (Procardia Xl -) 60 mg PO DAILY [facility] Last Admin: 05/21/16 09:07 Dose: 60 mg Ondansetron HCl (Zofran Injection) 4 mg IVPB Q6H PRN PRN Reason: NAUSEA AND/OR VOMITING Last Admin: 05/20/16 17:30 Dose: 4 mg Sertraline HCl (Zoloft -) 25 mg PO DAILY [facility] Last Admin: 05/21/16 09:12 Dose: 25 mg Sevelamer Carbonate (Renvela -) 2,400 mg PO TIDCM [facility] Last Admin: 05/21/16 17:16 Dose: 2,400 mg - Objective Vital Signs: Vital Signs Temperature 98 F 05/21/16 22:00 Pulse Rate 84 05/21/16 22:00 Respiratory Rate 20 05/21/16 22:00 Blood Pressure 162/92 05/21/16 22:00 O2 Sat by Pulse Oximetry (%) 98 05/21/16 21:00 Labs: CBC, BMP 05/20/16 06:30 05/21/16 10:30 INR, PTT INR 0.99 (0.82-1.09) 05/18/16 07:40
[2016-05-22] MEDS: INSULIN (NOVOLOG) ASPART 100 UNITS/ML 10ML VIAL SQ SCH ×4 (06:31→16:24)
[2016-05-22] MEDS: SEVELAMER CARBONATE 800 MG TAB (FP) PO SCH ×4 (07:34→17:37)
[2016-05-22] MEDS ORDERED: PT OWN MED DRAWER 7, Y5N ONE (09:10)
[2016-05-22] MEDS: SERTRALINE HCL 25 MG TABLET (FP) PO SCH (09:11)
[2016-05-22] MEDS: FOLIC ACID 1 MG TABLET (FP) PO SCH (09:11)
[2016-05-22] MEDS: LABETALOL HCL 200 MG TABLET (FP) PO SCH ×2 (09:11→21:52)
[2016-05-22] MEDS: ISOSORBIDE MONONITRATE 30 MG TAB.SR.24H (FP) PO SCH (09:11)
[2016-05-22] MEDS: NIFEdipine E.R 60 MG TABLET (UD) PO SCH (09:12)
[2016-05-22] MEDS: hydrALAZINE HCL 25 MG TABLET (FP) PO SCH ×2 (09:12→21:53)
[2016-05-22] MEDS: ACETAMINOPHEN 325 MG TABLET (FP) PO PRN ×2 (09:16→21:53)
[2016-05-22] MEDS: LABETALOL HCL 5 MG/1 ML (100MG/20 ML VIAL) IVPUSH ONE (10:07)
[2016-05-22] MEDS: ACETAMINOPHEN 1000 MG/100 ML VIAL (NON FORMULARY) IVPB ONE (10:08)
[2016-05-22] MEDS: INSULIN DETEMIR 100 UNITS/ML MDV SQ SCH (21:58)
--- NOTE | 2016-05-22 23:16 | PN ---
Progress Note, Physician History of Present Illness: No complaints - Current Medication List Current Medications: Active Medications Acetaminophen (Tylenol -) 650 mg PO Q6H PRN PRN Reason: FEVER OR PAIN Last Admin: 05/22/16 21:53 Dose: 650 mg Folic Acid (Folic Acid -) 1 mg PO DAILY [facility] Last Admin: 05/22/16 09:11 Dose: 1 mg Hydralazine HCl (Apresoline -) 25 mg PO BID [facility] Last Admin: 05/22/16 21:53 Dose: 25 mg Insulin Aspart (Novolog Vial) 3 units SQ TIDAC [facility] Last Admin: 05/22/16 16:24 Dose: 3 units Insulin Detemir (Levemir Vial) 10 units SQ HS [facility] Last Admin: 05/22/16 21:58 Dose: 10 units Isosorbide Mononitrate (Imdur -) 30 mg PO DAILY [facility] Last Admin: 05/22/16 09:11 Dose: 30 mg Labetalol HCl (Normodyne -) 200 mg PO BID [facility] Last Admin: 05/22/16 21:52 Dose: 200 mg Nifedipine (Procardia Xl -) 60 mg PO DAILY [facility] Last Admin: 05/22/16 09:12 Dose: 60 mg Ondansetron HCl (Zofran Injection) 4 mg IVPB Q6H PRN PRN Reason: NAUSEA AND/OR VOMITING Last Admin: 05/20/16 17:30 Dose: 4 mg Sertraline HCl (Zoloft -) 25 mg PO DAILY [facility] Last Admin: 05/22/16 09:11 Dose: 25 mg Sevelamer Carbonate (Renvela -) 2,400 mg PO TIDCM [facility] Last Admin: 05/22/16 17:37 Dose: 2,400 mg - Objective Vital Signs: Vital Signs Temperature 98.3 F 05/22/16 14:00 Pulse Rate 85 05/22/16 14:00 Respiratory Rate 20 05/22/16 14:00 Blood Pressure 135/93 05/22/16 06:00 O2 Sat by Pulse Oximetry (%) 98 05/22/16 08:30 Neck: Yes: Supple Cardiovascular: Yes: WNL, Regular Rate and Rhythm Respiratory: Yes: WNL, Regular, CTA Bilaterally Gastrointestinal: Yes: WNL, Normal Bowel Sounds, Soft, Abdomen, Obese Extremities: Yes: Other ((+) LUE fistula) Labs: CBC, BMP 05/20/16 06:30 05/21/16 10:30 INR, PTT INR 0.99 (0.82-1.09) 05/18/16 07:40 Problem List - Problems (1) AV fistula thrombosis Assessment/Plan: S/P Lt AVF venogram/thrombectomy/venoplasty Cont dialysis as per renal Pt for discharge today Code(s): T82.868A - THROMBOSIS DUE TO VASCULAR PROSTH DEV/GRFT, INIT Qualifiers: Encounter type: initial encounter Qualified Code(s): T82.868A - Thrombosis of vascular prosthetic devices, implants and grafts, initial encounter Assessment/Plan 1. Accelerated HTN BP better controlled Will need close outpt f/u 2. Diabetes Cont insulin
--- NOTE | 2016-05-23 06:00 | PN ---
Progress Note, Physician Chief Complaint: Pt denies chest pain; c/o headache. History of Present Illness: The patient is a 41 year old male (b. [place]) with significant past medical history of diabetes, HTN, and ESRD (on dialysis MWF) who presents to the emergency department with a headache for 1 day. The patient states his headache started yesterday afternoon and has been getting worse. He describes the headache as a constant, throbbing pressure localized to the front of his head. His pain does not radiate. He denies photophobia and other aggravating factors. He has associated bilateral blurry vision. He also reports associated nausea but denies any vomiting. He denies dizziness or lightheadedness. The patient is also complaining of right lower extremity weakness since yesterday. He has never experienced this pain before. The pt was at dialysis today but did not receive his treatment because he came to the ED for evaluation of his headache. He denies any chest pain or SOB. He denies recent illness, fevers, and chills. The patient has been treated for a similar headache in 2013. - Current Medication List Current Medications: Active Medications Acetaminophen (Tylenol -) 650 mg PO Q6H PRN PRN Reason: FEVER OR PAIN Last Admin: 05/22/16 21:53 Dose: 650 mg Folic Acid (Folic Acid -) 1 mg PO DAILY [facility] Last Admin: 05/22/16 09:11 Dose: 1 mg Hydralazine HCl (Apresoline -) 25 mg PO BID [facility] Last Admin: 05/22/16 21:53 Dose: 25 mg Insulin Aspart (Novolog Vial) 3 units SQ TIDAC [facility] Last Admin: 05/22/16 16:24 Dose: 3 units Insulin Detemir (Levemir Vial) 10 units SQ HS [facility] Last Admin: 05/22/16 21:58 Dose: 10 units Isosorbide Mononitrate (Imdur -) 30 mg PO DAILY [facility] Last Admin: 05/22/16 09:11 Dose: 30 mg Labetalol HCl (Normodyne -) 200 mg PO BID [facility] Last Admin: 05/22/16 21:52 Dose: 200 mg Nifedipine (Procardia Xl -) 60 mg PO DAILY [facility] Last Admin: 05/22/16 09:12 Dose: 60 mg Ondansetron HCl (Zofran Injection) 4 mg IVPB Q6H PRN PRN Reason: NAUSEA AND/OR VOMITING Last Admin: 05/20/16 17:30 Dose: 4 mg Sertraline HCl (Zoloft -) 25 mg PO DAILY [facility] Last Admin: 05/22/16 09:11 Dose: 25 mg Sevelamer Carbonate (Renvela -) 2,400 mg PO TIDCM [facility] Last Admin: 05/22/16 17:37 Dose: 2,400 mg - Objective Vital Signs: Vital Signs Temperature 98.6 F 05/22/16 22:00 Pulse Rate 83 05/22/16 22:00 Respiratory Rate 20 05/22/16 22:00 Blood Pressure 132/84 05/22/16 22:00 O2 Sat by Pulse Oximetry (%) 98 05/22/16 21:00 Constitutional: Yes: Anxious Eyes: Yes: WNL HENT: Yes: WNL Neck: Yes: WNL Cardiovascular: Yes: Regular Rate and Rhythm Respiratory: Yes: Regular Gastrointestinal: Yes: Soft Musculoskeletal: Yes: Muscle Weakness Neurological: Yes: Alert, Oriented, Weakness Psychiatric: Yes: Alert, Oriented Labs: CBC, BMP 05/20/16 06:30 05/21/16 10:30 INR, PTT INR 0.99 (0.82-1.09) 05/18/16 07:40 Problem List - Problems (1) Headache Code(s): R51 - HEADACHE (2) Renal dialysis Code(s): Z99.2 - DEPENDENCE ON RENAL DIALYSIS (3) HTN (hypertension) Code(s): I10 - ESSENTIAL (PRIMARY) HYPERTENSION (4) AV fistula thrombosis Code(s): T82.868A - THROMBOSIS DUE TO VASCULAR PROSTH DEV/GRFT, INIT Qualifiers: Encounter type: initial encounter Qualified Code(s): T82.868A - Thrombosis of vascular prosthetic devices, implants and grafts, initial encounter (5) Systolic CHF Assessment/Plan: On Labetolol, hydralazine (consider adding Nitrate), and nifedipine. Code(s): I50.20 - UNSPECIFIED SYSTOLIC (CONGESTIVE) HEART FAILURE (6) Hyperkalemia Assessment/Plan: F/U With nephologist; for HD. Code(s): E87.5 - HYPERKALEMIA (7) Hyperlipidemia Assessment/Plan: f/u lipid panel (low LDL in 2013; ?not on statin). F/u TSH. Code(s): E78.5 - HYPERLIPIDEMIA, UNSPECIFIED
[2016-05-23] MEDS: INSULIN (NOVOLOG) ASPART 100 UNITS/ML 10ML VIAL SQ SCH ×3 (06:45→14:13)
[2016-05-23] MEDS ORDERED: PT OWN MED DRAWER 7, Y5N ONE (09:41)
[2016-05-23] MEDS: LABETALOL HCL 200 MG TABLET (FP) PO SCH (09:42)
[2016-05-23] MEDS: SERTRALINE HCL 25 MG TABLET (FP) PO SCH (09:42)
[2016-05-23] MEDS: ISOSORBIDE MONONITRATE 30 MG TAB.SR.24H (FP) PO SCH (09:42)
[2016-05-23] MEDS: FOLIC ACID 1 MG TABLET (FP) PO SCH (09:42)
[2016-05-23] MEDS: NIFEdipine E.R 60 MG TABLET (UD) PO SCH (09:43)
[2016-05-23] MEDS: SEVELAMER CARBONATE 800 MG TAB (FP) PO SCH ×3 (09:43→14:14)
[2016-05-23] MEDS: hydrALAZINE HCL 25 MG TABLET (FP) PO SCH (09:43)
[2016-05-23 10:46] LABS: MCH 30.4 pg (25.7-33.7); MCHC 33.8 g/dl (32.0-35.9); MEAN CELL VOLUME 89.9 fl (80-96); MEAN PLT VOLUME 8.2 fl (7.5-11.1); PLATELET COUNT 72 K/MM3 (134-434); RDW 14.9 % (11.9-15.9); WHITE BLOOD COUNT 3.1 K/mm3 (4.0-10.0)
--- NOTE | 2016-05-23 10:52 | PN ---
Progress Note (short form) - Note Progress Note: Renal Follow up for ESRD on HD/Clotted AVF Pt seen and examined at the bedside no complaints was not discharged because home services could not be arranged Vital Signs Temperature 98.8 F 05/23/16 10:10 Pulse Rate 86 05/23/16 10:15 Respiratory Rate 18 05/23/16 10:15 Blood Pressure 133/68 05/23/16 10:15 O2 Sat by Pulse Oximetry (%) 98 05/22/16 21:00 Intake & Output 05/20/16 05/21/16 05/22/16 05/23/16 23:59 23:59 23:59 23:59 Intake Total 600 650 700 275 Output Total 0 0 Balance 600 650 700 275 Gen: NAD CVS: RRR, No M/R Lungs: CTA, no rales or wheeze Abd: soft NT/ND Ext: No edema, clubbing or cyanosis CBC, BMP 05/23/16 10:15 Current Medications Acetaminophen (Tylenol -) 650 mg PO Q6H PRN PRN Reason: FEVER OR PAIN Last Admin: 05/22/16 21:53 Dose: 650 mg Folic Acid (Folic Acid -) 1 mg PO DAILY [facility] Last Admin: 05/23/16 09:42 Dose: 1 mg Hydralazine HCl (Apresoline -) 25 mg PO BID [facility] Last Admin: 05/23/16 09:43 Dose: 25 mg Insulin Aspart (Novolog Vial) 3 units SQ TIDAC [facility] Last Admin: 05/23/16 06:45 Dose: 3 units Insulin Detemir (Levemir Vial) 10 units SQ HS [facility] Last Admin: 05/22/16 21:58 Dose: 10 units Isosorbide Mononitrate (Imdur -) 30 mg PO DAILY [facility] Last Admin: 05/23/16 09:42 Dose: 30 mg Labetalol HCl (Normodyne -) 200 mg PO BID [facility] Last Admin: 05/23/16 09:42 Dose: 200 mg Nifedipine (Procardia Xl -) 60 mg PO DAILY [facility] Last Admin: 05/23/16 09:43 Dose: 60 mg Ondansetron HCl (Zofran Injection) 4 mg IVPB Q6H PRN PRN Reason: NAUSEA AND/OR VOMITING Last Admin: 05/20/16 17:30 Dose: 4 mg Sertraline HCl (Zoloft -) 25 mg PO DAILY [facility] Last Admin: 05/23/16 09:42 Dose: 25 mg Sevelamer Carbonate (Renvela -) 2,400 mg PO TIDCM [facility] Last Admin: 05/23/16 09:43 Dose: 2,400 mg A/P 41 year old Gentleman with PMhx of ESRD with Hx of Renal transplant now on HD, Hypertension, IDDM who was sent to the ED from his outpatient HD unit for clotted AVF. Pt with complaints of headache since yesterday that is diffuse #Malfunctioning AVF AVF now functioning well #ESRD on HD Hd today as inpatient #Hypertension Continue Procardia XL and PO labealol UF with HD extra procardia 30mg this am as bp is elevated for discharge today Fransisco Pittman DO
[2016-05-23 11:11] LABS: CALCIUM 7.7 mg/dL (8.5-10.1); PHOSPHOROUS 6.8 mg/dL (2.5-4.9)
--- NOTE | 2016-05-23 11:50 | PN ---
Progress Note, Physician History of Present Illness: seen and examined today in nad. states he is feeling better. no overnight events. no new complaints. - Current Medication List Current Medications: Active Medications Acetaminophen (Tylenol -) 650 mg PO Q6H PRN PRN Reason: FEVER OR PAIN Last Admin: 05/22/16 21:53 Dose: 650 mg Folic Acid (Folic Acid -) 1 mg PO DAILY [facility] Last Admin: 05/23/16 09:42 Dose: 1 mg Hydralazine HCl (Apresoline -) 25 mg PO BID [facility] Last Admin: 05/23/16 09:43 Dose: 25 mg Insulin Aspart (Novolog Vial) 3 units SQ TIDAC [facility] Last Admin: 05/23/16 11:35 Dose: Not Given Insulin Detemir (Levemir Vial) 10 units SQ HS [facility] Last Admin: 05/22/16 21:58 Dose: 10 units Isosorbide Mononitrate (Imdur -) 30 mg PO DAILY [facility] Last Admin: 05/23/16 09:42 Dose: 30 mg Labetalol HCl (Normodyne -) 200 mg PO BID [facility] Last Admin: 05/23/16 09:42 Dose: 200 mg Nifedipine (Procardia Xl -) 60 mg PO DAILY [facility] Last Admin: 05/23/16 09:43 Dose: 60 mg Ondansetron HCl (Zofran Injection) 4 mg IVPB Q6H PRN PRN Reason: NAUSEA AND/OR VOMITING Last Admin: 05/20/16 17:30 Dose: 4 mg Sertraline HCl (Zoloft -) 25 mg PO DAILY [facility] Last Admin: 05/23/16 09:42 Dose: 25 mg Sevelamer Carbonate (Renvela -) 2,400 mg PO TIDCM [facility] Last Admin: 05/23/16 09:43 Dose: 2,400 mg - Objective Vital Signs: Vital Signs Temperature 98.8 F 05/23/16 10:10 Pulse Rate 81 05/23/16 11:15 Respiratory Rate 18 05/23/16 11:15 Blood Pressure 108/75 05/23/16 11:15 O2 Sat by Pulse Oximetry (%) 98 05/23/16 09:00 Constitutional: Yes: Well Nourished, No Distress, Calm Eyes: Yes: WNL, Conjunctiva Clear, EOM Intact, PERRL HENT: Yes: WNL, Atraumatic, Normocephalic Neck: Yes: WNL, Supple, Trachea Midline Cardiovascular: Yes: WNL, Regular Rate and Rhythm, S1, S2. No: Bradycardia, Tachycardia, Pulse Irregular, Bruit, JVD, Gallop, Murmur, Rub, S3, S4, Varicosities Respiratory: Yes: WNL, Regular, CTA Bilaterally. No: Rales, Rhonchi, Wheezes Gastrointestinal: Yes: WNL, Normal Bowel Sounds, Soft. No: Distention, Tenderness Musculoskeletal: Yes: WNL Extremities: Yes: WNL Edema: No Peripheral Pulses WNL: Yes Peripheral Pulses: Left Doralis Pedis: 2+, Right Dorsalis Pedis: 2+ Integumentary: Yes: WNL Neurological: Yes: WNL, Alert, Oriented, Cran Nerves II-XII Intact ...Motor Strength: WNL Psychiatric: Yes: WNL, Alert, Oriented Labs: CBC, BMP 05/23/16 10:15 05/23/16 10:15 INR, PTT INR 0.99 (0.82-1.09) 05/18/16 07:40 - ....Imaging Chest X-ray: Report Reviewed, Image Reviewed EKG: Report Reviewed, Image Reviewed Other: Report Reviewed, Image Reviewed Assessment/Plan 41 year old man h/o DM, ESRD on HD admitted with headache and clotted AV graft, noted to have severe uncontrolled HTN. HTN-Severe uncontrolled during admission, now adequately controlled for a few days -cont procardia XL 60mg daily, Labetalol 200mg bid and hydralazine 25mg po bid for now -Imdur 30mg daily was added over the weekend -no additional inpatient cardiac work up needed at this point -pt should be followed closely as outpatient for further adjustment of anti-HTN regimen as needed
--- NOTE | 2016-05-23 14:06 | OP ---
DATE OF OPERATION: 05/20/2016 PROCEDURES: 1. Venogram. 2. Suction thrombectomy. 3. Venoplasty, left AV fistula. PREOPERATIVE DIAGNOSIS: Carotid left AV fistula. POSTOPERATIVE DIAGNOSIS: Carotid left AV fistula. SURGEON: Kd Mueller DO ANESTHESIA: Fractional. BLOOD LOSS: 10 mL INDICATION: The patient is a 41-year-old male who comes in with a left AV fistula that has low flow in it and it was decided that he would need a venogram. Under ultrasound guidance, we had visualized one of the pseudoaneurysms and the body of the fistula had a lot of clot. It was decided he would need a suction thrombectomy. The patient was consented for the procedure, understanding all risks, benefits and alternatives, then taken to the operating room. DESCRIPTION OF PROCEDURE: Once in the operating room, he was laid on the operating table in supine position. In the operating room, the left arm was prepped and draped in a sterile surgical manner. Under ultrasound guidance, we visualized the proximal AV fistula and 10 mL of lidocaine 1% were injected. We then took a micropuncture needle and punctured the AV fistula. A micropuncture wire was inserted, and a traditional short 6-[place] sheath was inserted. We then shot a venogram of the AV fistula showing that there was slow flow there, but the fistula was patent all the way up into the central veins. We then placed a 0.035 floppy guidewire up into the central veins. We then used an AV suction catheter, and performed of the entire AV fistula and made multiple passes with it. At this point, we shot a venogram again, and there was more brisk flow. We then used a 10 x 4 balloon and formed a venoplasty of the AV fistula along the areas that had the pseudoaneurysm. Completion of the venogram now showed that there was good flow and the fistula was patent. There was a good thrill in the AV fistula. The patient tolerated the procedure with no complications. Using a 4-0 Biosyn stitch, we placed a [id number] stitch around the sheath and the sheath was pulled. The area was wet and dried, and Dermabond was placed. Patient tolerated the procedure with no complication. The patient was transferred to the PACU in stable condition. KD MUELLER DO MANAGER [id number]
[2016-05-23 14:43] VITALS: BP 107/68; PULSE 91; TEMP 97.8
== END 2016-05-23 17:16 | disposition home health service (06) | DRG 252 ==
LOC: JER 07:10 → JASUSAT 13:11 → UNDOADMOB 13:24 → JERBED 13:24 → J6S 18:10 → JASUSAT 18:16
PROVIDERS: ADMIT Internal Medicine; ATTEND Internal Medicine
PROC: 06HN33Z Insertion of Infusion Device into Left Femoral Vein, Percutaneous Approach (ICD-10-PCS; 2016-05-19)
PROC: B50NYZZ Plain Radiography of Left Upper Extremity Veins using Other Contrast (ICD-10-PCS; 2016-05-20)
PROC: 5A1D60Z (ICD-10-PCS; 2016-05-20)
PROC: 05C Upper Veins, Extirpation (ICD-10-PCS; principal; 2016-05-20 15:30)
DX: T82.868A Thrombosis due to vascular prosthetic devices, implants and grafts, initial encounter (principal); N18.6 End stage renal disease; I12.0 Hypertensive chronic kidney disease with stage 5 chronic kidney disease or end stage renal disease; I50.20 Unspecified systolic (congestive) heart failure; Z99.2 Dependence on renal dialysis; E11.9 Type 2 diabetes mellitus without complications; Z79.4 Long term (current) use of insulin; E87.5 Hyperkalemia; E78.5 Hyperlipidemia, unspecified; R51 Headache; Y83.9 Surgical procedure, unspecified as the cause of abnormal reaction of the patient, or of later complication, without mention of misadventure at the time of the procedure
CPT/HCPCS: 36415; 70450-TC; 76000-TC; 80048; 80053; 84100; 85025; 85027; 85610; 86704; 86706; 86708; 87340; 93005; 93010; 93971; 94760; 99284-25; J1644